=== PATIENT | male | born 1965 ===

== ENCOUNTER 2021-12-02 10:36 | Outpatient (CLI) | payer SELFPAY ==
[2021-12-03 17:40] LABS: SARS-CoV-2 PCR by NAA Not Detected (NotDetected)
[2021-12-04] MEDS ORDERED: Lidocaine 2% PF 5 ML VIAL ONE (08:26)
[2021-12-04] MEDS ORDERED: Dexamethasone 4 mg/ml Vial ONE (08:27)
[2021-12-04] MEDS ORDERED: Ondansetron PF 4 MG/2 ML Vial ONE (08:27)
== END 2021-12-02 10:37 | disposition home or self-care (01) ==
LOC: CSHLAB 10:36
PROVIDERS: ATTEND Surgery
DX: Z20.822 Contact with and (suspected) exposure to COVID-19 (principal); K42.9 Umbilical hernia without obstruction or gangrene
CPT/HCPCS: U0003; U0005

== ENCOUNTER 2021-12-04 06:42 | Day surgery (SDC) | payer SELFPAY ==
[2021-11-28 15:53] VITALS: BMI 28.7
[2021-12-04] MEDS ORDERED: HYDROcodone/Acetaminophen 5/325 mg Tablet PO PRN (08:37)
== END 2021-12-04 11:20 | disposition home or self-care (01) ==
LOC: CSHSDC 06:42
PROVIDERS: ATTEND Surgery
PROC: 0WUF0JZ Supplement Abdominal Wall with Synthetic Substitute, Open Approach (ICD-10-PCS; principal; 2021-12-04)
DX: K42.0 Umbilical hernia with obstruction, without gangrene (principal); G47.30 Sleep apnea, unspecified